=== PATIENT | female | born 1970 | race Caucasian/White ===

== ENCOUNTER 2017-11-23 22:13 | Emergency (ER) | payer OTHER ==
[~2017-11-23] VITALS: Ht 170.2 cm; Wt 71.7 kg
[~2017-11-23 22:13] MED LIST: ALPR.5 PO; BCP'S; BUPR100ER; BUPR150T2; CLON.5 PO; CODBUTACEC PO; CYCL10; CYCL10 PO; HYDACE5; HYDMOR4 PO; IBUHYD PO; LEVSOD125 PO; LEVSOD50 PO; LORA1; LORA1 PO; OXYACE5T PO; OXYACE7.5T; PAXIL; PROC10 PO; PROM25; Prozac40 MG PO; RXTRAM50 PO; TOPI100 PO; TRAZ50; ZIPSOR25 MG; ZOLP10 PO; ZOLP5; ZOLP5 PO; [UNRECOGNIZED DRUG - SUPPLY]
[2017-11-23 23:04] LABS: BASOPHILS ABSOLUTE AUTO 0.04 K/mm3 (0.00-0.23); BASOPHILS PERCENT AUTO 1 % (0-2); EOSINOPHILS PERCENT AUTO 2 % (0-6); Hematocrit 38.1 % (33.0-51.0); Hemoglobin 12.4 g/dL (11.5-16.0); IMMATURE GRAN ABSOLUTE AUTO 0.01 K/mm3 (0.00-0.10); IMMATURE GRAN PERCENT AUTO 0 % (0-1); LYMPHOCYTES ABSOLUTE AUTO 2.48 K/mm3 (0.84-5.20); LYMPHOCYTES PERCENT AUTO 43 % (21-46); MONOCYTES ABSOLUTE AUTO 0.42 K/mm3 (0.16-1.47); MONOCYTES PERCENT AUTO 7 % (4-13); Mean Corpuscular HGB 29.5 pg (26.0-34.0); Mean Corpuscular HGB Conc 32.5 g/dL (31.5-36.5); Mean Corpuscular Volume 91 fL (80-100); Mean Platelet Volume 9.9 fL (9.1-12.4); NEUTROPHILS ABSOLUTE AUTO 2.73 K/mm3 (1.96-9.15); NEUTROPHILS PERCENT AUTO 47 % (41-73); Platelet Count 303 K/mm3 (150-400); RDW Coefficient Variation 12.6 % (11.7-14.2); RDW Standard Deviation 41.1 fL (35.1-46.3); White Blood Cell Count 5.78 K/mm3 (4.00-11.30)
[2017-11-23 23:25] LABS: Alanine Aminotransfer (ALT/SGP 13 U/L (12-78); Albumin, Blood 3.8 g/dL (3.4-5.0); Alk Phos 54 U/L (50-136); Anion Gap 6 mmol/L (6-16); Aspartate Aminotrans (AST/SGOT 11 U/L (12-37); Bilirubin, Total 0.2 mg/dL (0.1-1.0); Blood Urea Nitrogen 7 mg/dL (8-24); CO2, Blood 28 mmol/L (21-32); Calcium, Blood 8.4 mg/dL (8.5-10.1); Chloride, Blood 107 mmol/L (98-108); Creatinine, Blood 0.78 mg/dL (0.40-1.00); Glomerular Filtration Rate >60 (60-); Glucose, Blood 73 mg/dL (70-99); Potassium, Blood 3.3 mmol/L (3.5-5.5); Sodium, Blood 141 mmol/L (136-145); Total Protein, Blood 7.8 g/dL (6.4-8.2); Troponin I <0.015 ng/mL (0.000-0.040)
[2017-11-23] MEDS ORDERED: DULO30 (23:45)
== END 2017-11-24 00:44 | disposition home or self-care (01) ==
LOC: ER 22:13
PROVIDERS: Emergency Medicine
DX: R07.89 Other chest pain (principal); Z88.0 Allergy status to penicillin; Z88.2 Allergy status to sulfonamides; Z88.5 Allergy status to narcotic agent; Z79.899 Other long term (current) drug therapy; E03.9 Hypothyroidism, unspecified
CPT/HCPCS: 80053; 84484; 85025; 93005; 93010; 99283

== ENCOUNTER → 2019-12-20 | Outpatient (CLI) | payer OTHER ==
[~2019-12-20] MED LIST changes: +DULO30
== END | disposition home or self-care (01) ==
LOC: LAB 10:12 → LAB SHORT 10:12
DX: J02.9 Acute pharyngitis, unspecified (principal)
CPT/HCPCS: 87081

== ENCOUNTER → 2020-07-03 | Outpatient (CLI) | payer OTHER ==
[2020-07-03 20:27] LABS: Adenovirus F 40/41 Not Detected (NOT DETECT); Astrovirus Not Detected (NOT DETECT); Campylobacter Sp Not Detected (NOT DETECT); Cryptosporidium Not Detected (NOT DETECT); Cyclospora Cayetanensis Not Detected (NOT DETECT); E. Coli O157 Not Detected (NOT DETECT); Entamoeba Histolytica Not Detected (NOT DETECT); Enteroaggregative E. coli-EAEC Not Detected (NOT DETECT); Enteropathogenic E. coli-EPEC Not Detected (NOT DETECT); Enterotoxigenic E. coli-ETEC Not Detected (NOT DETECT); Giardia Lamblia Not Detected (NOT DETECT); Norovirus GI/GII Not Detected (NOT DETECT); Plesiomonas Shigelloides Not Detected (NOT DETECT); Rotavirus A Not Detected (NOT DETECT); Salmonella Sp Not Detected (NOT DETECT); Sapovirus Not Detected (NOT DETECT); Shiga Toxin-prod E. coli-STEC Not Detected (NOT DETECT); Shigella/Enteroin E. coli-EIEC Not Detected (NOT DETECT); Vibrio Cholerae Not Detected (NOT DETECT); Vibrio Sp Not Detected (NOT DETECT); Yersinia Enterocolitica Not Detected (NOT DETECT)
== END | disposition home or self-care (01) ==
LOC: LAB SHORT 15:42 → LAB EV 15:42
PROVIDERS: Nurse Practitioner
DX: R14.0 Abdominal distension (gaseous) (principal)
CPT/HCPCS: 0097U

== ENCOUNTER 2020-10-28 11:23 | Day surgery (SDC) | payer OTHER ==
[~2020-10-28] VITALS: Ht 170.2 cm; Wt 76.1 kg
[~2020-10-28 11:23] MED LIST changes: +EMGALITY120 MG/1 M; +GABA100 PO; +ZOLP10
[2020-10-28] MEDS ORDERED: DULO60 (12:15)
[2020-10-28] MEDS ORDERED: FLUO10 PO (12:16)
[2020-10-28] MEDS ORDERED: ESTRADIOL BENZOA (12:20)
== END 2020-10-28 14:32 | disposition home or self-care (01) ==
LOC: ORSCSDS 11:23
PROVIDERS: Internal Medicine Gastroenterology
PROC: 0DB98ZX Excision of Duodenum, Via Natural or Artificial Opening Endoscopic, Diagnostic (ICD-10-PCS; principal; 2020-10-28 12:45)
PROC: 0DB68ZX Excision of Stomach, Via Natural or Artificial Opening Endoscopic, Diagnostic (ICD-10-PCS; principal; 2020-10-28 12:45)
PROC: 0DBN8ZX Excision of Sigmoid Colon, Via Natural or Artificial Opening Endoscopic, Diagnostic (ICD-10-PCS; principal; 2020-10-28 12:45)
PROC: 0DBL8ZX Excision of Transverse Colon, Via Natural or Artificial Opening Endoscopic, Diagnostic (ICD-10-PCS; principal; 2020-10-28 12:45)
DX: R10.84 Generalized abdominal pain (principal); R14.0 Abdominal distension (gaseous); K31.7 Polyp of stomach and duodenum; K29.80 Duodenitis without bleeding; K29.70 Gastritis, unspecified, without bleeding; D12.3 Benign neoplasm of transverse colon; D12.5 Benign neoplasm of sigmoid colon; R19.7 Diarrhea, unspecified; K92.1 Melena; E03.9 Hypothyroidism, unspecified; Z79.899 Other long term (current) drug therapy
CPT/HCPCS: 88305; 88342; J2704; J7120

== ENCOUNTER → 2020-12-16 | Outpatient (CLI) | payer OTHER ==
[~2020-12-16] MED LIST changes: +DULO60; +ESTRADIOL BENZOA; +FLUO10 PO
[2020-12-16 12:06] LABS: Source, Urine Clean Catch
[2020-12-16 13:40] LABS: Appearance, Urine Clear (Clear); Bilirubin, Urine Neg (Neg); Blood, Urine 2+ (Neg); Color, Urine Yellow (P-Yellow); Glucose Qualitative, Urine Neg (Neg); Ketones, Urine Neg (Neg); Leukocyte Esterase, Urine 2+ (Neg); Nitrite, Urine Neg (Neg); Protein, Urine Neg (Neg); Urobilinogen, Urine NORM (Normal)
[2020-12-16 13:56] LABS: White Blood Cells, Urine 25-50 /hpf (0-5)
[2020-12-16 13:58] LABS: Bacteria Few /hpf; Squamous Epithelial Cells Few /hpf (Few)
== END ==
LOC: LAB 12:05 → LAB SHORT 12:05
PROVIDERS: Internal Medicine
DX: R30.0 Dysuria (principal)
CPT/HCPCS: 81001; 87086

== ENCOUNTER → 2022-10-01 | Outpatient (CLI) | payer OTHER ==
[2022-10-04 12:08] LABS: LYME IGG CIA Negative (Negative); LYME IGM CIA Negative (Negative); LYME INTERPRETATION Lyme Abs Unconfirmed (.); LYME TOTAL ANTIBODY CIA Positive (Negative)
== END | disposition home or self-care (01) ==
LOC: LAB SHORT 09:02 → LAB 09:02
PROVIDERS: General Practice
DX: T14.8XXA Other injury of unspecified body region, initial encounter (principal)
CPT/HCPCS: 86618

== ENCOUNTER → 2023-10-21 | Outpatient (CLI) | payer OTHER ==
[2023-10-21 18:41] LABS: Free Thyroxine 0.93 ng/dL (0.70-1.60)
[2023-10-21 18:42] LABS: Thyroid Stimulating Hormone 8.42 uIU/mL (0.360-4.800); Triiodothyronine, Free 2.36 pg/mL (2.18-3.98)
== END | disposition home or self-care (01) ==
LOC: LAB 16:45 → LAB SHORT 16:45
PROVIDERS: Internal Medicine
DX: E03.9 Hypothyroidism, unspecified (principal)
CPT/HCPCS: 36415; 84439; 84443; 84481

== ENCOUNTER 2025-05-17 12:54 | Day surgery (SDC) | payer OTHER ==
[~2025-05-17] VITALS: Ht 167.6 cm; Wt 78.9 kg
[2025-05-17] MEDS ORDERED: CeFAZolin Sodium 2,000 MG VIAL ONE (13:21)
[2025-05-17] MEDS ORDERED: PROZAC2010 PO (13:29)
[2025-05-17] MEDS ORDERED: ZOLPIDEM TARTRA10 MG PO (13:30)
[2025-05-17] MEDS ORDERED: GABAPENTIN600 MG PO (13:30)
[2025-05-17] MEDS ORDERED: Ativan1 MG (13:31)
[2025-05-17] MEDS ORDERED: ESTRADIOL1 M1 PO (13:31)
[2025-05-17] MEDS ORDERED: Budeprion Xl300 MG PO (13:33)
[2025-05-17] MEDS ORDERED: Lidocaine HCl 2% 10 ML SDA ONE (13:50)
--- NOTE | 2025-05-17 14:49 | NUR ---
05/17/25 1449 Abby Chacon PT TAKEN TO THE RESTROOM TO VOID JUST PRIOR TO GOING TO OR.
[2025-05-17] MEDS ORDERED: Lidocaine HCl 2% 10 ML SDA INJ ONE (15:00)
[2025-05-17] MEDS ORDERED: Bupivacaine 0.5% HCl 5 MG/ML 30MLVIAL INJ ONE (15:10)
--- NOTE | 2025-05-17 16:52 | NUR ---
05/17/25 1652 Cesar Vergara PT REPORTED TOLERABLE 2/10 PAIN AT TIME OF D/C. SHE APPEARED ALERT, RELAXED, AND TALKATIVE. PT EXPRESSED READINESS TO RETURN HOME. SHE DENEID SP, SOB, HEADACHE, WEAKNESS, VISUAL PROBLEMS, AND OTHER SYMPTOMS. OLIVIA GUEVARA CONSULTED AND APPROVED D/C WITH CURRENT VITALS.
[2025-05-17 16:59] VITALS: BP 128/78
== END 2025-05-17 16:50 | disposition home or self-care (01) ==
LOC: ORSCSDS 12:54
PROVIDERS: Podiatrist Foot & Ankle Surgery
PROC: 0QBN0ZZ Excision of Right Metatarsal, Open Approach (ICD-10-PCS; principal; 2025-05-17 14:15)
DX: M21.621 Bunionette of right foot (principal); F41.9 Anxiety disorder, unspecified; E03.9 Hypothyroidism, unspecified; Z79.899 Other long term (current) drug therapy
CPT/HCPCS: A6253; J0165; J0690; J2003; J2704; J7120